=== PATIENT | male | born 1975 | race Caucasian/White ===

== ENCOUNTER → 2019-03-19 13:44 | Outpatient (CLI) | payer MEDICAID ==
[2019-03-19 14:33] LABS: BASOPHILS 0.5 % (0-2); EOSINOPHILS 0.7 % (0-7); HEMATOCRIT 41.9 % (42.0-54.0); HEMOGLOBIN 14.7 g/dL (13.5-17.5); IMMATURE GRANULOCYTES 0.1 % (0-5); LYMPHOCYTES 39.9 % (15-50); MCH 31.5 pg (26.0-34.0); MCHC 35.1 g/dL (31.0-37.0); MCV 89.7 fL (80.0-100.0); MEAN PLATELET VOLUME 8.8 fL (7.4-10.4); MONOCYTES 4.2 % (2-11); NEUTROPHILS 54.6 % (40-80); PLATELET COUNT 308 10x3/uL (130-400); RBC 4.67 10x6/uL (4.20-6.10); RDW 13.5 % (11.5-14.5); WBC 8.8 10x3/uL (4.8-10.8)
[2019-03-19 15:19] LABS: ALBUMIN 4.1 g/dL (3.4-5.0); ALKALINE PHOSPHATASE 76 U/L (46-116); ALT (SGPT) 19 U/L (10-68); BILIRUBIN - TOTAL 0.38 mg/dL (0.2-1.3); C-REACTIVE PROTEIN 0.4 mg/dL (0.0-0.9); CALC OSMOLALITY 273 mosm/kg (275-300); CALCIUM 8.9 mg/dL (8.5-10.1); CARBON DIOXIDE 25.3 mmol/L (21.0-32.0); CHLORIDE - SERUM 101 mmol/L (98-107); CREATININE - SERUM 0.7 mg/dL (0.6-1.3); GLUCOSE 89 mg/dL (74-106); POTASSIUM - SERUM 4.3 mmol/L (3.5-5.1); PROTEIN - SERUM 7.8 g/dL (6.4-8.2); SODIUM 138 mmol/L (136-145); UREA NITROGEN 11 mg/dL (7-18); eGFR NON AFRICAN AMERICAN > 90 mL/min (90-120)
[2019-03-19 16:26] LABS: ERYTHROCYTE SEDIMENTATION RATE 17 mm/hr (0-15)
[2019-03-20 07:20] LABS: RAPID PLASMA REAGIN Non Reactive (Non Reactive)
[2019-03-20 15:11] LABS: ANA REFLEX - DIRECT Negative (Negative)
[2019-03-21 11:11] LABS: ANGIOTENSIN CONVERTING ENZYME < 15 U/L (14-82)
[2019-03-21 17:08] LABS: ANCA - ANTIMYELOPEROXIDASE <9.0 U/mL (0.0-9.0); ANCA - ANTIPROTEINASE 3 <3.5 U/mL (0.0-3.5); ANCA - ATYPICAL <1:20 titer (Neg:<1:20); ANCA - CYTOPLASMIC <1:20 titer (Neg:<1:20); ANCA - PERINUCLEAR <1:20 titer (Neg:<1:20)
[2019-03-22 15:12] LABS: LYSOZYME 4.6 ug/mL (3.0-12.8)
[2019-03-25 10:09] LABS: HLA B27 Positive (())
== END | disposition home or self-care (01) ==
LOC: D.LAB 13:44
PROVIDERS: Specialist
DX: H20.9 Unspecified iridocyclitis (principal)